=== PATIENT | female | born 1980 | race Caucasian/White ===

== ENCOUNTER → 2017-08-15 14:13 | Outpatient (CLI) | payer OTHER, SELFPAY ==
--- NOTE | 2017-08-15 14:18 | CT_ITS ---
STUDY: CT ABDOMEN AND PELVIS WITH CONTRAST REASON FOR EXAM: Female, 37 years old. Left mid abdominal pain and palpable mass. 30 pound weight loss in 4 months. RADIATION DOSAGE (If Supplied By Facility): CTDIvol = ( 17.57 ) mGy, DLP = ( 1615.16 ) mGycm TECHNIQUE: Transaxial images were obtained from the dome of the diaphragm to the symphysis pubis with oral contrast. 100 ml of Isovue 300 contrast was administered. Sagittal and coronal images were reconstructed. Individualized dose optimization techniques were used for this CT. COMPARISON: Comparison is made with prior examination dated March 03, 2016. FINDINGS: The visualized lung bases are unremarkable. The visualized portions of the heart are within normal limits. Normal liver. Normal gallbladder and extrahepatic biliary system. There is severe splenomegaly. Normal pancreas. Normal bilateral adrenal glands. There is a 5.4 cm x 4.4 cm cyst in the upper pole of the left kidney. Normal left kidney. Normal visualized stomach. Normal small intestine. Normal colon. The appendix is visualized and appears normal. Normal abdominal aorta. Normal inferior vena cava. Normal retroperitoneum. Normal urinary bladder. There is a 2.3 cm cyst in the right ovary. Small amount of free fluid in the cul-de-sac. Normal abdominal wall. Normal osseous structures. CT/Abdomen/Pelvis WITH Contrast IMPRESSION: Marked degree of splenomegaly. Stable right renal cyst. Small left ovarian cyst. Small amount of free fluid in the cul-de-sac. Electronically Signed: Louis Wise MD at 15:11 EST Tel [phone], Service support ,
== END ==
PROVIDERS: Family Provider Family Medicine; PCP Family Medicine; Visit Provider Family Medicine
DX: R19.02 Left upper quadrant abdominal swelling, mass and lump (principal); R10.9 Unspecified abdominal pain
CPT/HCPCS: 74177; Q9967

== ENCOUNTER 2020-04-03 09:02 | Emergency (ER) | payer OTHER, SELFPAY ==
[2020-04-03 09:03] VITALS: BP 158/94; PULSE 103; RESP 16; TEMP 36.6; O2SAT 99; BMI 34.2
--- NOTE | 2020-04-03 09:38 | RAD_ITS ---
STUDY: X-RAY CHEST REASON FOR EXAM: Female, 39 years old. [place], back pain, fever -- x 2 days TECHNIQUE: Single AP portable view of the chest. COMPARISON: None. FINDINGS: Mild elevation of the right hemidiaphragm. There is no demonstrated pleural abnormality. Normal size heart. Normal mediastinum and sudarshan. Normal visualized pulmonary arteries. Normal visualized aortic arch and descending thoracic aorta. Normal visualized thoracic spine. Normal visualized ribs, clavicles, and shoulders. There is no demonstrated abnormality of the visualized soft tissue structures of the upper abdomen. RAD/Chest 1 View (Portable) IMPRESSION: Normal x-ray examination of the chest. Electronically Signed: Louis Wise, at 10:24 EDT , Service support ,
--- NOTE | 2020-04-03 09:39 | ED.DCSUM_ITS ---
- ER Visit Summary Date of Service: 04/03/20 Chief Complaint: Headache and fever History of Present Illness: The patient is a 39 F who presents with headache and fever that began 2 days ago. Patient states she started with pain in her left ear and then developed headache and fever 2 days ago. Patient states this lasted until yesterday. Patient states her headache and fever have resolved. Patient still complains of pain in her left ear. Patient also admits to some back pain but states she twisted her left ankle and thinks she twisted her right lower lumbar area at the same time. Patient states her back pain is worse with any movement. Patient denies any paresthesias or weakness. Patient denies any saddle anesthesia. Patient denies any urinary complaints. Patient states that her employer is requiring her to have a negative COVID test before she is allowed to return to work. Patient states her oncologist also recommended that she get a COVID test. Physical Examination: Vital signs are stable. Patient is afebrile here. Patient is in no acute distress. Tympanic membranes are clear bilaterally. Oral mucosa is pink and moist. Oropharynx is clear. Neck is supple. Trachea is midline. There is no JVD or lymphadenopathy. Heart was regular rate and rhythm. Lungs are clear and equal bilaterally. Abdomen is soft and nontender. Bowel sounds are normal. Cranial nerves II through XII are intact. There are no focal motor or sensory deficits noted. Musculoskeletal exam reveals mild tenderness over the right upper lumbar paraspinal muscles. There is no midline tenderness. There is good range of motion. Straight leg raises were negative bilaterally. Test Results: CBC and comprehensive metabolic profile were obtained and were essentially within normal limits with the exception of a mild hypokalemia of 3.0. Portable chest x-ray was obtained. There is no acute cardiopulmonary process. This was interpreted by the radiologist and reviewed by myself. Emergency Department Course and Treatment: Patient was given a dose of oral potassium here. A send out COVID swab was obtained. Patient was instructed to follow-up with her primary care physician for results of this. Patient was instructed to quarantine until her results are returned. Patient understands and is agreeable with the plan. All questions were answered. Disposition: Discharge home Impression: Viral illness This note was generated with [employer] dictation software. It may contain incorrect words, spelling, and punctuation that were not noted in review of the chart p rior to signing ED Disposition - Plan for ED Patient: Disposition: Home or Assisted Living Diagnosis: Viral illness Instructions: ED Viral Syndrome Referrals: Dvaid Beltran MD [Primary Care Provider] - 3-5 Days
[2020-04-03 09:58] LABS: Absolute Lymphocyte Count 1.93 X10^3/uL (0.83-4.51); Absolute Neutrophil Count 5.2 X10^3/uL (2.0-7.7); Basophil# 0.02 X10^3/uL; Basophil% 0.2 % (0-1); Eosinophil# 0.05 X10^3/uL; Eosinophils% 0.6 % (0-5); Hematocrit 30.2 % (37-47); Hemoglobin 9.5 g/dL (12.0-15.0); Lymphocyte # 1.93 X10^3/ul (4.0); Mean Corp Hgb Conc 31.5 g/dL (32-36); Mean Corpuscular Hgb 30.4 pg (27.0-32.0); Mean Corpuscular Volume 96.8 fL (81-99); Mean Platelet Vol. 11.6 fl (6.2-12.0); NRBC Flagged by Analyzer 0 % (0-5); Neutrophil # 5.22 X10^3/uL (2.7-7.7); Platelet Count 125 K/mm3 (150-450); RBC Distribution Width CV 17.2 % (11.6-14.6); RBC Distribution Width SD 61.1 fl (35.1-43.9); Red Blood Count 3.12 M/mm3 (4.2-5.4)
[2020-04-03 10:15] LABS: ALB/GLOB Ratio 0.7 RATIO (0.9-2.4); AST(SGOT) 12 U/L (15-37); Alanine Aminotransfer ALT/SGPT 19 U/L (13-56); Albumin, Serum 3.6 g/dL (3.2-5.0); Alkaline Phosphatase 87 U/L (45-117); Anion Gap 6 (5-15); BUN 6 mg/dL (7-18); BUN/Creat Ratio 6.9 RATIO (10-20); Calcium,Total 8.7 mg/dL (8.5-10.1); Chloride 104 mmol/L (98-107); Creatinine, Serum 0.86 mg/dL (0.55-1.02); EST Glomerular Filtration Rate 76 mL/min (>60); Est Glom Filt Rate - Afr Amer 93 mL/min (>60); Estimated Creatinine Clearance 83.72 ml/min; Glucose 100 mg/dL (74-106); Protein, Total 8.6 g/dL (6.4-8.2); Sodium Level 137 mmol/L (136-145)
[2020-04-03 11:28] VITALS: PULSE 80; RESP 16; O2SAT 97
== END 2020-04-03 11:28 | disposition home or self-care (01) ==
LOC: ED 10:52
PROVIDERS: Emergency Provider Emergency Medicine; PCP Physician Assistant
DX: B34.9 Viral infection, unspecified (principal); E87.6 Hypokalemia; R51 Headache; R50.9 Fever, unspecified; H92.02 Otalgia, left ear; M54.9 Dorsalgia, unspecified; Z79.899 Other long term (current) drug therapy
CPT/HCPCS: 71045; 80053; 85025; 87635; 99284; A4216; U0003